=== PATIENT | male | born 1975 | race Caucasian/White ===

== ENCOUNTER 2016-08-25 13:58 | Emergency (ER) | payer SELFPAY ==
[2016-08-25 14:00] VITALS: BP 157/93; PULSE 91; RESP 18; TEMP 98.3; O2SAT 99
--- NOTE | 2016-08-25 15:39 | PD ---
HPI . BA due to possible suicide attempt Chief Complaint: Psychiatric Symptoms Time Seen by Provider: 15:39 Travel History International Travel<30 days: No Contact w/Intl Traveler<30days: No Traveled to known affect area: No History of Present Illness HPI 40 yr old male transferred from [facility] due to possible suicide attempt. Patient had overdosed on cocaine and opiates and was found to have rhabdo. His CK was trending down and he was medically cleared for transport here. I have reviewed his labs. I have done an exam. Patient tells me he did not try to kill himself. 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 He says he uses drugs regularly and did not think he had taken too much. He states he is not suicidal or homicidal, but admits to regular recreational drug usage. PFSH Past Medical History Diminished Hearing: No Hypertension: Yes Social History Alcohol Use: Yes Tobacco Use: Yes Substance Use: Yes (METH LAST NIGHT) Allergies-Medications (Allergen,Severity, Reaction): Coded Allergies: No Known Allergies (Verified , 05/03/13) Reported Meds & Prescriptions Reported Meds & Active Scripts Active No Active Prescriptions or Reported Medications Review of Systems General / Constitutional: No: Fever Eyes: No: Visual changes HENT: No: Headaches Cardiovascular: No: Chest Pain or Discomfort Respiratory: No: Shortness of Breath Gastrointestinal: No: Abdominal Pain Genitourinary: No: Dysuria Musculoskeletal: No: Pain Skin: No Rash Neurologic: No: Weakness Psychiatric: No: Depression Endocrine: No: Polydipsia Hematologic/Lymphatic: No: Easy Bruising Physical Exam Narrative GENERAL: AAO x 3, no acute distress, Well-nourished, well-developed patient. SKIN: Warm and dry. No visible rashes or bruising. HEAD: Normocephalic and atraumatic. EYES: No scleral icterus. No injection or drainage. ENT: No nasal drainage noted. Mucous membranes pink. Airway patent. NECK: Supple, trachea midline. No JVD. CARDIOVASCULAR: Regular rate and rhythm without murmurs, gallops, or rubs. RESPIRATORY: Breath sounds equal bilaterally. No accessory muscle use. No rhonchi or rales. GASTROINTESTINAL: Abdomen soft, non-tender, nondistended. EXTREMITIES: No cyanosis or edema. BACK: Nontender without obvious deformity. No CVA tenderness. NEURO: CN II-12 intact, parts expediter strength normal b/l, UE and LE 5/5, no focal deficits PSYCH: AAO x 3, flat affect Data Data Last Documented VS Vital Signs Date Time Temp Pulse Resp B/P Pulse Ox O2 Delivery O2 Flow Rate FiO2 08/25/16 16:36 98.3 91 18 157/93 99 08/25/16 14:00 Room Air Orders Psych Screen (08/25/16 14:02) [facility] Medical Decision Making Medical Screen Exam Complete: Yes Emergency Medical Condition: Yes Medical Record Reviewed: Yes Differential Diagnosis suicidal attemp, polysubstance abuse, drug abuse mood disorder Narrative Course 40 year old male here as transfer for suicide attempt. He is alert and oriented. I have reviewed his labs. He will be seen by psych and disposition will be determined. I do not recommend any further testing. Diagnosis Primary Impression: Suicide attempt Patient Instructions: General Instructions Scripts No Active Prescriptions or Reported Meds Condition: Stable [place]at Buenrostro Aug 25, 2016 15:39
[2016-08-25 16:36] VITALS: BP 157/93; TEMP 98.3
--- NOTE | 2016-08-25 16:36 | PD.PSY.CON ---
Provisional Diagnosis Admission Date Date of consultation 08/25/16 [place] I. 1. Polysubstance abuse including cocaine and opiates 2. Rule out panic disorder [place] II. Deferred [place] V. GAF is 55 History of Present Illness Service Psychiatry Consult Requested By Emergency department Reason for Consult Mendoza act Primary Care Physician No Primary Care Physician HPI Mr. Pro is a 40-year-old male with a reported history of substance use issues who presents in transfer from [facility] under a Mendoza act initiated by [place] [employer] alleging that the patient called 911 for "overdosing on cocaine." Records from [facility] reviewed. Patient's urine toxicology was positive for cocaine and opiates. His CK was significantly elevated at 1073 initially downtrending to 755 when rechecked. He did present with a 3cm superficial lac on his right wrist, which was repaired with suture. Reviewing the electronic medical record, I see no prior psychiatric contact within our system. Patient seen and examined. Chart reviewed. Case discussed with nursing staff. No behavioral issues noted per nurse. On my examination today, the patient is calm and cooperative with the evaluation. He is clinically sober. He says that he has no recollection of making these statements alleged in the Mendoza act. He does not remember making the laceration. He denies any suicidal or homicidal ideation, intent or plan on direct questioning. He contracts for safety. He denies any issues with low mood or elevated mood, nor can I elicit any depressive or hypomanic/manic symptoms. He denies audiovisual hallucinations, and I can elicit no delusional beliefs including but not limited to paranoia, ideas of reference or thought insertion or withdrawal. He says that he has been struggling with episodic anxiety, several episodes a day at times, since the passing of his son 3 years ago. He says of these episodes, which last for seconds to hours, "it feels like someone standing on top of me. It's hard to breathe and hard to move." No clear trigger for these episodes. No exacerbating or ameliorating factors. He reports that they occur regardless of whether he is using substances or not. The remainder of the psychiatric ROS is negative. The patient is requesting discharge from the psychiatric emergency room today. Past psychiatric history: Patient denies a history of psychiatric diagnosis. He denies a history of inpatient or outpatient psychiatric treatment. He denies a history of suicide attempts. Family history: Patient denies a family history of mental illness or suicide. He does endorse a family history of substance use issues. Chemical dependency history: The patient admits to ongoing use of cocaine and pain pills. He denies any other substance use. His longest sober time is 1 year. He denies any alcohol or other GABAergic use. He is presently unfortunately pre-contemplative with regards to changing his pattern of use. Social history: Patient reports that he has been living with a friend. He is single with no living children. He is high school educated and attended trade school. He works in heating and air conditioning. He denies any history. Denies any legal history. He is on probation for domestic violence. Denies any access to guns or firearms. No particular yarsani or spiritual beliefs. Review of Systems Except as stated in HPI: all other systems reviewed are Neg Past Family Social History Coded Allergies: No Known Allergies (Verified , 05/03/13) Past Medical History elevated CK. see emr. No Active Prescriptions or Reported Meds Patient's Strengths (min. 2) history of sobriety. verbal. Physical Exam Physical exam completed by ED provider. On my examination today, the patient appears to be in no acute physical distress. No abnormal motor movements noted. No stigmata of withdrawal noted. Labs and vitals reviewed: Vital Signs Vital Signs Date Time Temp Pulse Resp B/P Pulse Ox O2 Delivery O2 Flow Rate FiO2 08/25/16 14:00 98.3 91 18 157/93 99 Room Air Lab Results Laboratories from outside hospital reviewed: CBC reveals mild normocytic anemia with hemoglobin of 12.4. CMP reveals elevated sodium at 146 and elevated glucose at 187. CK was elevated but downtrending as I said. Alcohol level undetectable. Urine toxicology positive for opiates and cocaine. Mental Status Examination Patient is in hospital gown. He is somewhat disheveled but maintaining basic hygiene. He is awake and alert and oriented to person and hospital at least. No evidence of delirium. No motor abnormalities noted. Speech is within normal limits for rate, tone and volume. Language and fund of knowledge seem average. Focus and concentration intact. Memory grossly intact on clinical exam except the patient does not recall the circumstances leading to the Mendoza act. Mood is fair and affect is somewhat blunted. Thought process linear. No loosening of associations. No delusions elicited. Denies audiovisual hallucinations. Denies suicidal or homicidal ideation, intent or plan and contracts for safety. Insight and judgment are likely poor. Assessment & Plan Problem List: (1) Polysubstance abuse ICD Code: F19.10 Assessment & Plan This is a 40-year-old male with psychiatric history as detailed above who presents in transfer from outside hospital under a Mendoza act. Patient's urine toxicology was positive for opiates and cocaine on presentation to OSH, and patient admits to use of these substances. He has no recollection of calling the police, nor does he recall inflicting a laceration to his right wrist, if indeed this was self-inflicted. He does describe some symptoms of paroxysmal anxiety that sound not inconsistent with panic, and he has not previously sought help for this. Otherwise, I can detect no unstable mood, anxiety or psychotic disorder in this patient at this time. He denies suicidal or homicidal ideation and contracts for safety. He appears to be attending to his basic needs. Weighing the acute, chronic, and protective factors and based on the available evidence, I machine tack puller to a reasonable degree of medical certainty that the patient is at low imminent risk of harm to self or others from a mental illness as defined under the Mendoza act, and he does not presently meet the Mendoza act criteria. I have lifted the Mendoza act. He is declining voluntary psychiatric admission and requesting discharge from the ED today. He is most certainly substance use disordered, and I have strongly recommended he seek chemical dependency evaluation and treatment, although he is presently pre- contemplative with regards to changing his pattern of use. I have discussed with him possible options regarding opiate replacement therapy including Suboxone and methadone. I fear that he is at chronic but not acute or imminent risk for harm to self as a consequence of his substance use, but this is outside of the purview of the Mendoza Act. I have recommended that the patient follow-up on an outpatient basis with psychiatry for further assessment and treatment of possible panic disorder. I have counseled the patient regarding warning signs for need to return to the psychiatric emergency room as part of a general safety plan, and the patient does contract for safety as I said. Patient otherwise psychiatrically clear for discharge. Request HC Surrog/Guard Advoc?: No Roque Car MD Aug 25, 2016 16:36
== END 2016-08-25 17:04 | disposition home or self-care (01) ==
LOC: NEPJ 13:58
DX: R45.851 Suicidal ideations (principal); I10 Essential (primary) hypertension; Z72.0 Tobacco use
CPT/HCPCS: 99284